=== PATIENT | female | born 1970 | race Caucasian/White ===

== ENCOUNTER 2016-08-22 06:56 | Emergency (ER) | payer MEDICAID ==
[~2016-08-22] VITALS: Ht 152.4 cm; Wt 66.5 kg
[~2016-08-22 06:56] MED LIST: ALPRAZOLAM; FERR-55; SERT50TA6
[2016-08-22 07:00] VITALS: Ht 152.4 cm; Wt 66.5 kg
[2016-08-22] MEDS ORDERED: KETOROLAC 15 MG INJ IV STA (07:26)
[2016-08-22] MEDS ORDERED: SOD CHLORIDE 0.9% 1,000 ML IV STA ×2 (07:26→09:28)
[2016-08-22] MEDS ORDERED: ONDANSETRON 4 MG INJ IV STA (07:26)
[2016-08-22] MEDS ORDERED: LORAZEPAM 2 MG INJ IV ONE (07:30)
[2016-08-22 07:55] LABS: ADD SCAN DIFF NO
[2016-08-22 08:01] LABS: ABNORMAL IP MESSAGE 1; BASOPHILS % 0.2 % (0.0-2.0); EOSINOPHILS # 0.1 10^3/ul (0.0-0.5); EOSINOPHILS % 0.7 % (0.0-7.0); HEMATOCRIT 42.2 % (37.0-47.0); LYMPHOCYTES # 0.5 10^3/ul (0.8-2.9); LYMPHOCYTES % 4.7 % (15.0-51.0); MEAN CORPUSCULAR HEMOGLOBIN 27.5 pg (29.0-33.0); MEAN CORPUSCULAR HGB CONC 33.2 g/dl (32.0-37.0); MEAN CORPUSCULAR VOLUME 82.9 fl (82.0-101.0); MEAN PLATELET VOLUME 9.9 fl (7.4-10.4); MONOCYTE # 0.3 10^3/ul (0.3-0.9); NEUTROPHIL # 9.9 10^3/ul (1.6-7.5); NEUTROPHILS % 90.5 % (39.0-77.0); PLATELET COUNT 445 10^3/UL (140-415); RED BLOOD COUNT 5.09 10^6/ul (4.20-5.40); RED CELL DISTRIBUTION WIDTH 14.7 % (11.5-14.5)
[2016-08-22 08:26] LABS: ALBUMIN 5.7 g/dl (3.3-4.9); ALBUMIN/GLOBULIN RATIO 1.16; BILIRUBIN,INDIRECT 0.3 mg/dl (0-1.1); BILIRUBIN,TOTAL 0.3 mg/dl (0.2-1.3); CALCIUM 11.1 mg/dl (8.4-10.2); CREATININE 1.4 mg/dl (0.44-1.00); TOTAL PROTEIN 10.6 g/dl (6.1-8.1)
[2016-08-22] MEDS ORDERED: morphine 4 MG/ML VIAL IV STA (09:30)
--- NOTE | 2016-08-22 10:55 | RADRPT ---
PROCEDURE: CT Abdomen and Pelvis without contrast. CLINICAL INDICATION: Nausea, vomiting TECHNIQUE: CT of the abdomen and pelvis was performed on a multi-detector scanner without IV contr ast. Coronal and sagittal images were reformatted from the axial data set. One or more of the foll owing dose reduction techniques were used: automated exposure control, adjustment of the mA and/or kV according to patient size, use of iterative reconstruction technique. CTDI = 12.21 mGy. DLP = 70 1.35 mGy-cm. COMPARISON: Ultrasound, 01/04/2012 FINDINGS: CT abdomen: The lung bases are clear. The heart size is normal, without pericardial effusion. Liver, gallbladd er, biliary tree, pancreas, spleen, adrenal glands and kidneys are unremarkable. No urolithiasis or obstructive uropathy is identified. The stomach is grossly unremarkable. The aorta is of normal caliber. There is no retroperitoneal lymphadenopathy. The miguel angel hepatis reg ion is clear. CT pelvis: No bowel obstruction, free intraperitoneal air or abscess is identified. There is no diverticulosis , diverticulitis or colitis. The appendix is well visualized and normal. IUD is seen in normal pos ition within the uterus. Urinary bladder and adnexa are grossly unremarkable. No pelvic mass, free fluid or lymphadenopathy is identified. The surrounding osseous structures are unremarkable. No osteolytic or osteoblastic lesion is detect ed. IMPRESSION: 1. IUD is seen within the uterus. 2. No mass, lymphadenopathy, or focal acute inflammatory process is identified. RPTAT: HH .Tej Domínguez MD, Date Time Electronically viewed and signed by .Tej Domínguez MD, on 08/22/2016 10:55 .R/
[2016-08-22 10:57] LABS: ADD UMIC YES; UR ASCORBIC ACID NEGATIVE (NEGATIVE); UR BACTERIA FEW /HPF (NONE SEEN); UR BILIRUBIN (Dip) NEGATIVE (NEGATIVE); UR BLOOD (Dip) NEGATIVE (NEGATIVE); UR CLARITY TURBID (CLEAR); UR COLOR AMBER (YELLOW); UR GLUCOSE (Dip) NEGATIVE (NEGATIVE); UR KETONES (Dip) NEGATIVE (NEGATIVE); UR LEUKOCYTE ESTERASE (Dip) TRACE Leu/ul (NEGATIVE); UR MUCUS MANY /HPF (NONE SEEN); UR NITRITE (Dip) NEGATIVE (NEGATIVE); UR RBC 0 /HPF (0-5); UR SPECIFIC GRAVITY (Dip) 1.016 (1.003-1.030); UR SQUAMOUS EPITHELIAL CELL FEW /HPF (FEW); UR TOTAL PROTEIN (Dip) 2+ mg/dl (NEGATIVE); UR UROBILINOGEN (Dip) NEGATIVE (NEGATIVE)
[2016-08-22] MEDS ORDERED: LORA-441 PO (11:07)
[2016-08-22] MEDS ORDERED: ONDA4TAB14 PO (11:07)
[2016-08-22 11:23] VITALS: BP 128/78; PULSE 90; RESP 20
--- NOTE | 2016-08-22 17:20 | ERD ---
ER Documentation Chief Complaint Date/Time DATE: 08/22/16 TIME: 17:16 Chief Complaint ap n/v/d HPI This is a 46-year-old female with history of anxiety presenting to the emergency department complaining of generalized abdominal pain, nausea, nonbilious nonbloody vomiting and diarrhea that started today. Patient rates the pain moderate in severity. She denies fevers, melena or hematochezia. Patient states that the vomiting diarrhea has made her very anxious. She has not taken any medications for this ROS All systems reviewed and are negative except as per history of present illness. Medications Home Meds Active Scripts Lorazepam* (Ativan*) 0.5 Mg Tablet, 0.5 MG PO BID Y for ANXIETY, #14 TAB Prov:ALBERTINA GREENE PA-C 08/22/16 Ondansetron (Ondansetron Odt) 4 Mg Tab.rapdis, 4 MG PO Q6H Y for NAUSEA AND/OR VOMITING, #20 TAB Prov:ALBERTINA GREENE PA-C 08/22/16 Reported Medications [Alprazolam] No Conflict Check 05/24/12 Sertraline Hcl* (Sertraline Hcl*) 50 Mg Tablet, DAILY 05/24/12 Ferrous Sulfate* (Ferrous Sulfate*) 325 Mg Tablet, BID 05/24/12 Allergies Allergies: Coded Allergies: No Known Allergy (Verified , 05/24/12) Uncoded Allergies: NONE (Allergy, 09/24/10) PMhx/Soc History of Surgery: Yes (C SECTION) Anesthesia Reaction: No Hx Neurological Disorder: No Hx Respiratory Disorders: No Hx Cardiac Disorders: No Hx Psychiatric Problems: No Hx Miscellaneous Medical Probl: No Hx Alcohol Use: No Hx Substance Use: No Hx Tobacco Use: No Smoking Status: Never smoker Physical Exam Vitals Vital Signs Date Time Temp Pulse Resp B/P Pulse Ox O2 Delivery O2 Flow Rate FiO2 08/22/16 11:23 90 20 128/78 99 Room Air 08/22/16 07:00 97.8 131 24 100/70 99 Physical Exam GENERAL: well-developed/well-nourished, in no apparent distress, non-toxic appearing HENT: NC/AT, moist mucous membranes EYES: Conjunctiva normal NECK: Supple, no lymphadenopathy PULM: CTA bilaterally, no rales, rhonchi, or wheezing heard CV: Normal S1S2, regular rhythm, tachycardic, good capillary refill GI: Soft, non-distended, tender to palpation all quadrants Normal bowel sounds, no masses or organomegaly felt on exam No gross peritonitis, no bruits Negative Rovsing, negative Unger, negative McBurney's point, Negative CVAT BACK: No masses EXT: No clubbing, cyanosis, or edema NEURO: Alert and Orientated SKIN: Intact, normal turgor PSYCH: Normal mood and mentation Result Diagram: 08/22/16 0735 08/22/16 0735 Results 24 hrs Laboratory Tests Test 08/22/16 07:35 08/22/16 10:10 White Blood Count 11.010^3/ul Red Blood Count 5.0910^6/ul Hemoglobin 14.0g/dl Hematocrit 42.2% Mean Corpuscular Volume 82.9fl Mean Corpuscular Hemoglobin 27.5pg Mean Corpuscular Hemoglobin Concent 33.2g/dl Red Cell Distribution Width 14.7% Platelet Count 35428^3/UL Mean Platelet Volume 9.9fl Neutrophils % 90.5% Lymphocytes % 4.7% Monocytes % 3.0% Eosinophils % 0.7% Basophils % 0.2% Nucleated Red Blood Cells % 0.0/100WBC Neutrophils # 9.910^3/ul Lymphocytes # 0.510^3/ul Monocytes # 0.310^3/ul Eosinophils # 0.110^3/ul Basophils # 0.010^3/ul Nucleated Red Blood Cells # 0.010^3/ul Sodium Level 142mmol/L Potassium Level 4.0mmol/L Chloride Level 105mmol/L Carbon Dioxide Level 16mmol/L Anion Gap 25 Blood Urea Nitrogen 25mg/dl Creatinine 1.40mg/dl Glucose Level 145mg/dl Calcium Level 11.1mg/dl Total Bilirubin 0.3mg/dl Direct Bilirubin 0.00mg/dl Indirect Bilirubin 0.3mg/dl Aspartate Amino Transf (AST/SGOT) 35IU/L Alanine Aminotransferase (ALT/SGPT) 38IU/L Alkaline Phosphatase 130IU/L Total Protein 10.6g/dl Albumin 5.7g/dl Globulin 4.90g/dl Albumin/Globulin Ratio 1.16 Lipase 395U/L Urine Color GILA Urine Clarity TURBID Urine pH 5.0 Urine Specific [place] 1.016 Urine Ketones NEGATIVEmg/dL Urine Nitrite NEGATIVEmg/dL Urine Bilirubin NEGATIVEmg/dL Urine Urobilinogen NEGATIVEmg/dL Urine Leukocyte Esterase TRACELeu/ul Urine Microscopic RBC 0/HPF Urine Microscopic WBC 9/HPF Urine Squamous Epithelial Cells FEW/HPF Urine Bacteria FEW/HPF Urine Mucus MANY/HPF Urine Hemoglobin NEGATIVEmg/dL Urine Glucose NEGATIVEmg/dL Urine Total Protein 2+mg/dl Current Medications Medications (Trade) Dose Ordered Sig/Mendel Route PRN Reason Start Time Stop Time Status Last Admin Dose Admin Sodium Chloride (NS) 1,000 ml @ 1,000 mls/hr Q1H STAT IV 08/22/16 07:26 08/22/16 08:25 DC 08/22/16 07:38 Ondansetron HCl (Zofran Inj) 8 mg ONCE STAT IV 08/22/16 07:26 08/22/16 07:29 DC 08/22/16 07:38 Ketorolac Tromethamine (Toradol) 15 mg ONCE STAT IV 08/22/16 07:26 08/22/16 07:29 DC 08/22/16 10:12 Lorazepam 1 mg 1 mg ONCE ONCE IV 08/22/16 07:30 08/22/16 07:31 DC 08/22/16 07:38 Sodium Chloride (NS) 1,000 ml @ 1,000 mls/hr Q1H STAT IV 08/22/16 09:28 08/22/16 10:27 DC 08/22/16 09:31 Morphine Sulfate (morphine) 4 mg ONCE STAT IV 08/22/16 09:30 08/22/16 09:31 DC 08/22/16 10:13 Procedures/MDM This is a 46-year-old female history of anxiety presenting to the emergency department complaining of anxiety, nausea vomiting diarrhea that started today. This is likely viral gastroenteritis versus food poisoning. On examination patient was tachycardic however she was clinically anxious. IV access was established, patient was given 2 L of fluids, Ativan and morphine and Zofran. I have reassessed her and she significantly is a lot better. CBC did not show any significant leukocytosis or anemia. Patient did have mild hypercalcemia of 11.1 which I have consulted my supervising physician Dr. ritu Steven who stated that this can be followed up with her primary care physician. A CT of the abdomen and pelvis without contrast was done and did not show any evidence of appendicitis, diverticulitis, small or large bowel obstruction or other acute emergent conditions. Patient is stable to be discharged home to follow-up with primary care physician. Patient has ran out of her anti-anxiety medications at home, prescription for Zofran and short course Ativan as needed was provided. Patient understands and agrees with this plan and understands return precautions CT abdomen and pelvis without contrast: 1. IUD is seen within the uterus. 2. No mass, lymphadenopathy, or focal acute inflammatory process is identified. Departure Diagnosis: Primary Impression: Nausea vomiting and diarrhea Additional Impression: Anxiety Condition: Stable Patient Instructions: Anxiety Reaction, Diet, Vomiting Or Diarrhea [6Yr-Adult] , Vomiting And Diarrhea, Nonspecific (Adult) Additional Instructions: Visite a mahmood mdico camilaana para un EXAMEN.Regrese a estas instalaciones si no se mejora beronica esperbamos o beronica le dijimos. [place] toda la medicina irina y beronica se le indic. La medicina que se le recet puede causarle sueo.NO DEBE MANEJAR NI OPERAR MAQUINARIAS PELIGROSAS mientras esta tomando esta medicina! Regrese a estas instalaciones si no se mejora beronica esperbamos o beronica le dijimos. ALBERTINA GREENE PA-C Aug 22, 2016 17:20
== END 2016-08-22 11:23 | disposition home or self-care (01) ==
LOC: FTE 06:56
DX: R11.2 Nausea with vomiting, unspecified (principal); R19.7 Diarrhea, unspecified; F41.9 Anxiety disorder, unspecified
CPT/HCPCS: 36415; 74176; 80053; 81001; 83690; 85025; 96374; 96375; J1885; J2060; J2270; J2405; J7030; Z7502